=== PATIENT | female | born 1945 | race Two or more races ===

== ENCOUNTER 2018-01-12 13:18 | Outpatient (CLI) | payer OTHER | END 2018-01-12 13:20 | disposition home or self-care (01) | LOC: SONOGRAMA 13:18 | DX: S86.811A Strain of other muscle(s) and tendon(s) at lower leg level, right leg, initial encounter (principal) ==

== ENCOUNTER → 2018-01-12 | Outpatient (CLI) | payer OTHER ==
[~2018-01-12] MED LIST: CEFADROXIL500 MG PO; KETO10TA2 PO; NORVASC2.5 MG; PERCOCET 5/3251 TAB PO; SYNTHROID75 MCG; VITAMIN D400 UNI2
== END | disposition home or self-care (01) ==
LOC: NUCLEAR 11:59
DX: I82.409 Acute embolism and thrombosis of unspecified deep veins of unspecified lower extremity (principal)

== ENCOUNTER 2018-02-23 11:36 | Outpatient (CLI) | payer OTHER | END 2018-02-23 11:46 | disposition home or self-care (01) | LOC: LAB 11:36 | DX: B37.81 Candidal esophagitis (principal); Z11.4 Encounter for screening for human immunodeficiency virus [HIV] ==

== ENCOUNTER 2018-03-03 11:08 | Outpatient (CLI) | payer OTHER | END 2018-03-03 11:22 | disposition home or self-care (01) | LOC: NUCLEAR 11:08 | DX: M81.0 Age-related osteoporosis without current pathological fracture (principal) ==

== ENCOUNTER 2018-03-25 09:23 | Outpatient (CLI) | payer OTHER | END 2018-03-25 09:26 | disposition home or self-care (01) | LOC: SONOGRAMA 09:23 | DX: M25.561 Pain in right knee (principal); S76.812S Strain of other specified muscles, fascia and tendons at thigh level, left thigh, sequela ==

== ENCOUNTER 2018-05-05 10:05 | Outpatient (CLI) | payer OTHER | END 2018-05-05 15:49 | disposition home or self-care (01) | LOC: TOM 10:05 | DX: J44.9 Chronic obstructive pulmonary disease, unspecified (principal) ==

== ENCOUNTER → 2018-07-01 | Emergency (ER) | payer OTHER ==
[~2018-07-01] VITALS: Ht 152.4 cm; Wt 68.0 kg
== END | disposition home or self-care (01) ==
LOC: ER 13:03
DX: S70.02XA Contusion of left hip, initial encounter (principal); S99.812A Other specified injuries of left ankle, initial encounter; W18.09XA Striking against other object with subsequent fall, initial encounter; Y93.89 Activity, other specified; Y92.018 Other place in single-family (private) house as the place of occurrence of the external cause; Y99.8 Other external cause status

== ENCOUNTER 2018-08-24 09:50 | Outpatient (CLI) | payer OTHER | END 2018-08-24 09:55 | disposition home or self-care (01) | LOC: RAD 09:50 | DX: J44.1 Chronic obstructive pulmonary disease with (acute) exacerbation (principal) ==

== ENCOUNTER → 2018-09-01 12:12 | Outpatient (CLI) | payer OTHER | END | disposition home or self-care (01) | LOC: LAB 12:12 | DX: D72.1 Eosinophilia (principal); J45.41 Moderate persistent asthma with (acute) exacerbation ==

== ENCOUNTER 2018-12-17 17:53 | Emergency (ER) | payer OTHER ==
[~2018-12-17] VITALS: Ht 152.4 cm; Wt 71.2 kg
[2018-12-17] MEDS ORDERED: CLONAZEPAM0.5 MG (18:12)
[2018-12-17] MEDS ORDERED: GABAPENTIN800 MG (18:12)
[2018-12-17] MEDS ORDERED: ESTAZOLAM2 MG (18:13)
[2018-12-17] MEDS ORDERED: LYRICA50 MG (18:13)
[2018-12-17] MEDS ORDERED: B-121000 MC1 (18:14)
[2018-12-17] MEDS ORDERED: CYMBALTA60 MG (18:15)
[2018-12-17] MEDS ORDERED: FENOFIBRATE54 MG (18:16)
[2018-12-17] MEDS ORDERED: CALCIUM 600 +1 EACH (18:17)
[2018-12-17] MEDS ORDERED: NORVASC10 MG (18:17)
[2018-12-17] MEDS ORDERED: SIMVASTATIN5 MG (18:18)
== END 2018-12-17 23:33 | disposition home or self-care (01) ==
LOC: ER 17:53
DX: R10.32 Left lower quadrant pain (principal); R19.7 Diarrhea, unspecified

== ENCOUNTER 2018-12-21 11:48 | Outpatient (CLI) | payer OTHER ==
[~2018-12-21 11:48] MED LIST changes: +B-121000 MC1; +CALCIUM 600 +1 EACH; +CLONAZEPAM0.5 MG; +CYMBALTA60 MG; +ESTAZOLAM2 MG; +FENOFIBRATE54 MG; +GABAPENTIN800 MG; +LYRICA50 MG; +NORVASC10 MG; +SIMVASTATIN5 MG
== END 2018-12-21 12:03 | disposition home or self-care (01) ==
LOC: LAB 11:48
DX: R10.13 Epigastric pain (principal); R19.8 Other specified symptoms and signs involving the digestive system and abdomen

== ENCOUNTER 2018-12-22 08:54 | Outpatient (CLI) | payer OTHER | END 2018-12-22 08:59 | disposition home or self-care (01) | LOC: SONOGRAMA 08:54 | DX: R10.13 Epigastric pain (principal); K21.9 Gastro-esophageal reflux disease without esophagitis ==

== ENCOUNTER 2019-03-11 10:46 | Inpatient (IN) | payer OTHER ==
[~2019-03-11] VITALS: Ht 152.4 cm; Wt 68.0 kg
[2019-03-16] MEDS ORDERED: XARELTO20 MG PO (13:15)
[2019-03-16] MEDS ORDERED: CYMBALTA60 MG PO (13:15)
[2019-03-16] MEDS ORDERED: ESTAZOLAM PO (13:15)
[2019-03-16] MEDS ORDERED: AMLODIPINE BESY10 MG PO (13:15)
[2019-03-16] MEDS ORDERED: FENOFIBRATE PO (13:15)
[2019-03-16] MEDS ORDERED: PANTOPRAZOLE SO40 MG PO (13:15)
[2019-03-16] MEDS ORDERED: XARELTO15 MG PO (13:15)
[2019-03-16] MEDS ORDERED: LEVOTHYROXINE75 MCG PO (13:15)
[2019-03-16] MEDS ORDERED: SIMVASTATIN10 MG PO (13:15)
[2019-03-16] MEDS ORDERED: RESTORIL15 MG PO (13:15)
[2019-03-16] MEDS ORDERED: NeurRONTin 400MG CAP PO (13:15)
== END 2019-03-16 14:44 | disposition home health service (06) | DRG 301 ==
LOC: ER 10:46 → MEDJ 19:21
PROVIDERS: ADMIT Internal Medicine
PROC: B54CZZZ Ultrasonography of Left Lower Extremity Veins (ICD-10-PCS; principal; 2019-03-11)
DX: I82.462 Acute embolism and thrombosis of left calf muscular vein (principal); E11.40 Type 2 diabetes mellitus with diabetic neuropathy, unspecified; E11.65 Type 2 diabetes mellitus with hyperglycemia; M62.81 Muscle weakness (generalized); E03.8 Other specified hypothyroidism; E78.49 Other hyperlipidemia; Z79.4 Long term (current) use of insulin; Z86.73 Personal history of transient ischemic attack (TIA), and cerebral infarction without residual deficits; Z79.01 Long term (current) use of anticoagulants

== ENCOUNTER 2019-04-02 09:17 | Outpatient (CLI) | payer OTHER ==
[~2019-04-02 09:17] MED LIST changes: +AMLODIPINE BESY10 MG PO; +CYMBALTA60 MG PO; +ESTAZOLAM PO; +FENOFIBRATE PO; +LEVOTHYROXINE75 MCG PO; +NeurRONTin 400MG CAP PO; +PANTOPRAZOLE SO40 MG PO; +RESTORIL15 MG PO; +SIMVASTATIN10 MG PO; +XARELTO15 MG PO; +XARELTO20 MG PO
== END 2019-04-02 09:26 | disposition home or self-care (01) ==
LOC: LAB 09:17
DX: D51.1 Vitamin B12 deficiency anemia due to selective vitamin B12 malabsorption with proteinuria (principal); I80.222 Phlebitis and thrombophlebitis of left popliteal vein; Z80.3 Family history of malignant neoplasm of breast; D51.3 Other dietary vitamin B12 deficiency anemia; Z86.73 Personal history of transient ischemic attack (TIA), and cerebral infarction without residual deficits; I10 Essential (primary) hypertension; R73.01 Impaired fasting glucose; K21.9 Gastro-esophageal reflux disease without esophagitis; K29.40 Chronic atrophic gastritis without bleeding; B00.89 Other herpesviral infection; F33.8 Other recurrent depressive disorders; M81.0 Age-related osteoporosis without current pathological fracture; M79.7 Fibromyalgia; E55.9 Vitamin D deficiency, unspecified; M33.22 Polymyositis with myopathy; D47.3 Essential (hemorrhagic) thrombocythemia; R97.0 Elevated carcinoembryonic antigen [CEA]; E03.8 Other specified hypothyroidism; E78.2 Mixed hyperlipidemia

== ENCOUNTER 2019-05-17 08:45 | Outpatient (CLI) | payer OTHER | END 2019-05-17 09:00 | disposition home or self-care (01) | LOC: LAB 08:45 | DX: E11.65 Type 2 diabetes mellitus with hyperglycemia (principal); I10 Essential (primary) hypertension; E03.8 Other specified hypothyroidism; D50.8 Other iron deficiency anemias; R70.0 Elevated erythrocyte sedimentation rate; Z80.3 Family history of malignant neoplasm of breast; D51.1 Vitamin B12 deficiency anemia due to selective vitamin B12 malabsorption with proteinuria; I80.222 Phlebitis and thrombophlebitis of left popliteal vein; D51.3 Other dietary vitamin B12 deficiency anemia; Z86.73 Personal history of transient ischemic attack (TIA), and cerebral infarction without residual deficits; K21.9 Gastro-esophageal reflux disease without esophagitis; K29.40 Chronic atrophic gastritis without bleeding; B00.89 Other herpesviral infection; F33.8 Other recurrent depressive disorders; M81.0 Age-related osteoporosis without current pathological fracture; M79.7 Fibromyalgia; E55.9 Vitamin D deficiency, unspecified; M33.22 Polymyositis with myopathy; D47.3 Essential (hemorrhagic) thrombocythemia; R97.0 Elevated carcinoembryonic antigen [CEA]; E78.2 Mixed hyperlipidemia ==

== ENCOUNTER 2019-05-17 09:43 | Outpatient (CLI) | payer OTHER | END 2019-05-17 09:44 | disposition home or self-care (01) | LOC: RAD 09:43 | DX: D51.1 Vitamin B12 deficiency anemia due to selective vitamin B12 malabsorption with proteinuria (principal); I80.222 Phlebitis and thrombophlebitis of left popliteal vein; D51.3 Other dietary vitamin B12 deficiency anemia; Z86.73 Personal history of transient ischemic attack (TIA), and cerebral infarction without residual deficits; I10 Essential (primary) hypertension; R73.01 Impaired fasting glucose; K21.9 Gastro-esophageal reflux disease without esophagitis; K29.40 Chronic atrophic gastritis without bleeding; B00.89 Other herpesviral infection; F33.8 Other recurrent depressive disorders; M81.0 Age-related osteoporosis without current pathological fracture; M79.7 Fibromyalgia; E55.9 Vitamin D deficiency, unspecified; M33.22 Polymyositis with myopathy; D47.3 Essential (hemorrhagic) thrombocythemia; R97.0 Elevated carcinoembryonic antigen [CEA]; E03.8 Other specified hypothyroidism; E78.2 Mixed hyperlipidemia; Z80.3 Family history of malignant neoplasm of breast ==

== ENCOUNTER 2019-05-27 12:10 | Outpatient (CLI) | payer OTHER | END 2019-05-27 12:15 | disposition home or self-care (01) | LOC: MAMO-SONO 12:10 | DX: Z12.31 Encounter for screening mammogram for malignant neoplasm of breast (principal); Z87.898 Personal history of other specified conditions; N60.11 Diffuse cystic mastopathy of right breast; N60.12 Diffuse cystic mastopathy of left breast ==

== ENCOUNTER 2019-06-10 09:30 | Outpatient (CLI) | payer OTHER | END 2019-06-10 10:21 | disposition home or self-care (01) | LOC: NUCLEAR 09:30 | DX: M81.0 Age-related osteoporosis without current pathological fracture (principal) ==

== ENCOUNTER 2019-07-05 09:22 | Outpatient (CLI) | payer OTHER | END 2019-07-05 09:25 | disposition home or self-care (01) | LOC: NUCLEAR 09:22 | DX: I82.493 Acute embolism and thrombosis of other specified deep vein of lower extremity, bilateral (principal) ==

== ENCOUNTER 2019-08-06 07:23 | Outpatient (CLI) | payer OTHER | END 2019-08-06 07:24 | disposition home or self-care (01) | LOC: TOM 07:23 | DX: D51.1 Vitamin B12 deficiency anemia due to selective vitamin B12 malabsorption with proteinuria (principal); I80.222 Phlebitis and thrombophlebitis of left popliteal vein; D51.3 Other dietary vitamin B12 deficiency anemia; Z86.73 Personal history of transient ischemic attack (TIA), and cerebral infarction without residual deficits; Z80.3 Family history of malignant neoplasm of breast; I10 Essential (primary) hypertension; R73.01 Impaired fasting glucose; K29.40 Chronic atrophic gastritis without bleeding; K21.9 Gastro-esophageal reflux disease without esophagitis; B00.89 Other herpesviral infection; F33.8 Other recurrent depressive disorders; M81.0 Age-related osteoporosis without current pathological fracture; M79.7 Fibromyalgia; E55.9 Vitamin D deficiency, unspecified; M33.22 Polymyositis with myopathy; D47.3 Essential (hemorrhagic) thrombocythemia; R97.0 Elevated carcinoembryonic antigen [CEA]; E03.8 Other specified hypothyroidism; E78.2 Mixed hyperlipidemia ==

== ENCOUNTER 2019-09-29 10:14 | Outpatient (CLI) | payer OTHER | END 2019-09-29 10:21 | disposition home or self-care (01) | LOC: MRI 10:14 | PROVIDERS: ATTEND Orthopaedic Surgery | DX: M25.562 Pain in left knee (principal); S83.201A Bucket-handle tear of unspecified meniscus, current injury, left knee, initial encounter | CPT/HCPCS: 73718 ==

== ENCOUNTER 2020-02-28 10:22 | Outpatient (CLI) | payer OTHER | END 2020-02-28 10:28 | disposition home or self-care (01) | LOC: NUCLEAR 10:22 | PROVIDERS: ATTEND Internal Medicine Hematology & Oncology | DX: I80.222 Phlebitis and thrombophlebitis of left popliteal vein (principal); Z80.3 Family history of malignant neoplasm of breast; D51.1 Vitamin B12 deficiency anemia due to selective vitamin B12 malabsorption with proteinuria; D51.3 Other dietary vitamin B12 deficiency anemia; Z86.73 Personal history of transient ischemic attack (TIA), and cerebral infarction without residual deficits; I10 Essential (primary) hypertension; R73.01 Impaired fasting glucose; K21.9 Gastro-esophageal reflux disease without esophagitis; K29.40 Chronic atrophic gastritis without bleeding; B00.89 Other herpesviral infection; F33.9 Major depressive disorder, recurrent, unspecified; M81.0 Age-related osteoporosis without current pathological fracture; M79.7 Fibromyalgia; E55.9 Vitamin D deficiency, unspecified; M33.22 Polymyositis with myopathy; D47.3 Essential (hemorrhagic) thrombocythemia; R97.0 Elevated carcinoembryonic antigen [CEA]; E03.8 Other specified hypothyroidism; E78.2 Mixed hyperlipidemia ==

== ENCOUNTER 2020-09-01 09:08 | Outpatient (CLI) | payer OTHER | END 2020-09-01 09:15 | disposition home or self-care (01) | LOC: TOM 09:08 | PROVIDERS: ATTEND Internal Medicine Hematology & Oncology | DX: K21.9 Gastro-esophageal reflux disease without esophagitis (principal); Z80.3 Family history of malignant neoplasm of breast; Z86.73 Personal history of transient ischemic attack (TIA), and cerebral infarction without residual deficits; K29.40 Chronic atrophic gastritis without bleeding; M79.7 Fibromyalgia; E55.9 Vitamin D deficiency, unspecified; M33.22 Polymyositis with myopathy; D47.3 Essential (hemorrhagic) thrombocythemia; R97.0 Elevated carcinoembryonic antigen [CEA]; E03.8 Other specified hypothyroidism; E78.2 Mixed hyperlipidemia; D51.1 Vitamin B12 deficiency anemia due to selective vitamin B12 malabsorption with proteinuria; I10 Essential (primary) hypertension; B00.9 Herpesviral infection, unspecified; I80.222 Phlebitis and thrombophlebitis of left popliteal vein; R73.01 Impaired fasting glucose; M81.0 Age-related osteoporosis without current pathological fracture; D51.3 Other dietary vitamin B12 deficiency anemia | CPT/HCPCS: 71260; 74177; Q9965 ==

== ENCOUNTER 2020-12-07 09:54 | Outpatient (CLI) | payer OTHER | END 2020-12-07 10:04 | disposition home or self-care (01) | LOC: MAMO-SONO 09:54 | PROVIDERS: ATTEND General Practice | DX: N64.89 Other specified disorders of breast (principal); Z12.31 Encounter for screening mammogram for malignant neoplasm of breast ==

== ENCOUNTER 2020-12-07 12:46 | Outpatient (CLI) | payer OTHER | END 2020-12-07 12:52 | disposition home or self-care (01) | LOC: NUCLEAR 12:46 | PROVIDERS: ATTEND General Practice | DX: M81.0 Age-related osteoporosis without current pathological fracture (principal) ==

== ENCOUNTER 2021-06-13 09:49 | Outpatient (CLI) | payer OTHER | END 2021-06-13 10:04 | disposition home or self-care (01) | LOC: RAD 09:49 | PROVIDERS: ATTEND Internal Medicine Hematology & Oncology | DX: S00.93XA Contusion of unspecified part of head, initial encounter (principal); M54.89 Other dorsalgia; M33.22 Polymyositis with myopathy; M79.7 Fibromyalgia; R73.01 Impaired fasting glucose; M81.0 Age-related osteoporosis without current pathological fracture; R97.0 Elevated carcinoembryonic antigen [CEA] ==

== ENCOUNTER 2021-06-19 09:25 | Outpatient (CLI) | payer OTHER | END 2021-06-19 09:26 | disposition home or self-care (01) | LOC: NUCLEAR 09:25 | PROVIDERS: ATTEND Internal Medicine Hematology & Oncology | DX: D51.1 Vitamin B12 deficiency anemia due to selective vitamin B12 malabsorption with proteinuria (principal) ==

== ENCOUNTER 2021-06-27 08:00 | Outpatient (CLI) | payer OTHER | END 2021-06-27 08:30 | disposition home or self-care (01) | LOC: PPH VACUNA 08:00 | PROVIDERS: ATTEND Emergency Medicine Pediatric Emergency Medicine | DX: Z23 Encounter for immunization (principal) ==

== ENCOUNTER 2021-09-03 11:49 | Outpatient (CLI) | payer OTHER | END 2021-09-03 11:54 | disposition home or self-care (01) | LOC: RAD 11:49 | PROVIDERS: ATTEND Orthopaedic Surgery | DX: M25.561 Pain in right knee (principal); M25.562 Pain in left knee ==

== ENCOUNTER 2021-12-06 09:30 | Outpatient (CLI) | payer OTHER | END 2021-12-06 09:51 | disposition home or self-care (01) | LOC: LAB 09:30 | PROVIDERS: ATTEND Internal Medicine Hematology & Oncology | DX: D50.8 Other iron deficiency anemias (principal); I10 Essential (primary) hypertension; R74.02 Elevation of levels of lactic acid dehydrogenase [LDH]; K76.89 Other specified diseases of liver; E55.9 Vitamin D deficiency, unspecified; E03.8 Other specified hypothyroidism; C50.919 Malignant neoplasm of unspecified site of unspecified female breast; R97.8 Other abnormal tumor markers; R97.0 Elevated carcinoembryonic antigen [CEA]; D51.1 Vitamin B12 deficiency anemia due to selective vitamin B12 malabsorption with proteinuria; I80.222 Phlebitis and thrombophlebitis of left popliteal vein; R73.01 Impaired fasting glucose; K21.9 Gastro-esophageal reflux disease without esophagitis; K29.40 Chronic atrophic gastritis without bleeding; B00.9 Herpesviral infection, unspecified; F33.9 Major depressive disorder, recurrent, unspecified; M81.0 Age-related osteoporosis without current pathological fracture; M79.7 Fibromyalgia; M33.22 Polymyositis with myopathy; D47.3 Essential (hemorrhagic) thrombocythemia; E78.2 Mixed hyperlipidemia; K31.84 Gastroparesis; Z80.3 Family history of malignant neoplasm of breast; Z86.73 Personal history of transient ischemic attack (TIA), and cerebral infarction without residual deficits ==

== ENCOUNTER 2021-12-10 12:53 | Outpatient (CLI) | payer OTHER | END 2021-12-10 13:04 | disposition home or self-care (01) | LOC: RAD 12:53 | PROVIDERS: ATTEND Internal Medicine Hematology & Oncology | DX: S49.92XA Unspecified injury of left shoulder and upper arm, initial encounter (principal) ==

== ENCOUNTER 2021-12-18 10:38 | Outpatient (CLI) | payer OTHER | END 2021-12-18 10:40 | disposition home or self-care (01) | LOC: SONOGRAMA 10:38 | PROVIDERS: ATTEND Orthopaedic Surgery | DX: M25.512 Pain in left shoulder (principal) ==

== ENCOUNTER 2022-02-01 11:54 | Outpatient (CLI) | payer OTHER ==
[~2022-02-01 11:54] MED LIST changes: +AMBIEN10 MG; +FUSION PLUS CA1 EACH
== END 2022-02-01 14:57 | disposition home or self-care (01) ==
LOC: RAD 11:54
PROVIDERS: ATTEND Orthopaedic Surgery
DX: R07.9 Chest pain, unspecified (principal)

== ENCOUNTER → 2022-06-13 | Outpatient (CLI) | payer OTHER | END | disposition home or self-care (01) | LOC: SONOGRAMA 12:05 | PROVIDERS: ATTEND Internal Medicine Hematology & Oncology | DX: Z12.31 Encounter for screening mammogram for malignant neoplasm of breast (principal); N63.0 Unspecified lump in unspecified breast; N64.4 Mastodynia; E04.2 Nontoxic multinodular goiter ==

== ENCOUNTER 2022-07-09 14:06 | Outpatient (CLI) | payer OTHER | END 2022-07-09 14:14 | disposition home or self-care (01) | LOC: MRI 14:06 | PROVIDERS: ATTEND Internal Medicine Hematology & Oncology | DX: M25.512 Pain in left shoulder (principal); R60.1 Generalized edema; Z98.890 Other specified postprocedural states | CPT/HCPCS: 73721 ==

== ENCOUNTER 2022-10-18 07:04 | Outpatient (CLI) | payer OTHER | END 2022-10-18 07:11 | disposition home or self-care (01) | LOC: NUCLEAR 07:04 | PROVIDERS: ATTEND Internal Medicine | DX: I25.118 Atherosclerotic heart disease of native coronary artery with other forms of angina pectoris (principal); E78.2 Mixed hyperlipidemia; I11.9 Hypertensive heart disease without heart failure; R07.9 Chest pain, unspecified; E11.9 Type 2 diabetes mellitus without complications | CPT/HCPCS: 78452; 93017; A9500; J0153 ==

== ENCOUNTER → 2022-12-25 | Outpatient (CLI) | payer OTHER | END | disposition home or self-care (01) | LOC: NUCLEAR 13:00 | PROVIDERS: ATTEND Orthopaedic Surgery | DX: M81.0 Age-related osteoporosis without current pathological fracture (principal) ==

== ENCOUNTER 2023-04-22 14:11 | Inpatient (IN) | payer OTHER ==
[~2023-04-22] VITALS: Ht 154.9 cm; Wt 59.0 kg
[2023-04-22] MEDS ORDERED: LOSARTAN-HCTZ1 EACH PO (14:36)
[2023-04-22 18:12] LABS: MEAN CELL VOLUME 79.1 fL (80.00-100.00); PLATELET COUNT 452 K/uL (150-450); RED BLOOD COUNT 2.72 M/uL (4.00-6.00); RED CELL DISTRIBUTION WIDTH 14.9 % (11.5-14.5)
[2023-04-22 18:13] LABS: MEAN CORPUSCULAR HEMOGLOBIN 25.3 pg (27.00-32.0)
[2023-04-22 18:14] LABS: HEMATOCRIT 21.5 % (36.0-45.00); HEMOGLOBIN 6.9 g/dL (12.0-15.00)
[2023-04-22 18:25] LABS: PARTIAL THROMBOPLASTIN TIME 31.8 SECONDS (22.0-34.0); PROTHROMBIN TIME 10.5 SECONDS (9.0-11.5)
[2023-04-22 18:32] LABS: ALBUMIN 3.7 gm/dL (3.4-5.0); BILIRUBIN TOTAL 0.2 mg/dL (0.3-1.2); CALCIUM 9.8 mg/dL (8.5-10.1); CREATININE SERUM 1.2 mg/dL (0.55-1.02); GFR 43.68; GLOBULINA 4.1 G/DL (2.4-3.5); POTASSIUM 4.37 mEq/L (3.5-5.1); TOTAL PROTEIN 7.8 gm/dL (6.4-8.2)
[2023-04-22 19:46] LABS: URINE APPEARANCE Clear; URINE BILIRRUBIN Negative (NEGATIVE); URINE BLOOD Negative; URINE COLOR Yellow; URINE GLUCOSE Negative (NEGATIVE); URINE LEUKOCYTE Moderate; URINE NITRATE Negative; URINE PROTEIN Negative (NEGATIVE); URINE UROBILINOGEN 0.2 E.U./dl
[2023-04-22 19:50] LABS: URINE BACTERIA 1074.5 uL (0.0-1933); URINE EPITHELIAL CELLS 32.9 uL (0.0-38.8); URINE RBC 6.3 uL (0.0-20.8); URINE WBC 156.1 uL (0.0-23.2)
[2023-04-22] MEDS ORDERED: 0.9 % SODIUM CHLORIDE 1,000 ML IV SCH (22:30)
[2023-04-22] MEDS ORDERED: PANTOPRAZOLE SODIUM 40 MG/VIAL VIAL IV SCH (22:34)
[2023-04-22] MEDS ORDERED: CEFTRIAXONE SODIUM 2,000 MG in 0.9 % SODIUM CHLORIDE 100 ML IV SCH (22:35)
[2023-04-22] MEDS ORDERED: FUROsemide 20 MG/2 ML VIAL IV SCH (22:45)
[2023-04-22] MEDS ORDERED: ACETAMINOPHEN 500 MG GEL..CAP PO PRN (22:45)
[2023-04-23 00:41] LABS: INR 0.96; PARTIAL THROMBOPLASTIN TIME 28.8 SECONDS (22.0-34.0); PROTHROMBIN TIME 10.1 SECONDS (9.0-11.5)
[2023-04-23] MEDS ORDERED: LEVOTHYROXINE SODIUM 75 MCG TABLET PO SCH (06:00)
[2023-04-23] MEDS ORDERED: IRON FUM,PS/FOLIC/BCOMP,C NO.9 1 CAP CAPSULE PO SCH (09:00)
[2023-04-23] MEDS ORDERED: LOSARTAN/HYDROCHLOROTHIAZIDE 1 UDTAB TABLET PO SCH (09:00)
[2023-04-23] MEDS ORDERED: FUROsemide 20 MG/2 ML VIAL IV SCH (10:15)
[2023-04-23 14:24] LABS: FERRITIN 11.9 NG/ML (8-252)
[2023-04-23] MEDS ORDERED: POLYETHYLENE GLYCOL 3350 17 GM BLIST.PACK PO SCH (17:00)
[2023-04-23] MEDS ORDERED: VITAMIN B COMPLEX 1 EACH PO SCH (20:35)
[2023-04-23] MEDS ORDERED: ZOLPIDEM TARTRATE 10 MG TABLET PO SCH (21:00)
[2023-04-23 23:08] LABS: HEMATOCRIT 33.4 % (36.0-45.00); MEAN CELL VOLUME 80.3 fL (80.00-100.00); PLATELET COUNT 428 K/uL (150-450); RED BLOOD COUNT 4.16 M/uL (4.00-6.00); RED CELL DISTRIBUTION WIDTH 15.6 % (11.5-14.5)
[2023-04-23 23:18] LABS: HEMOGLOBIN 11.4 g/dL (12.0-15.00); MEAN CORPUSCULAR HEMOGLOBIN 27.4 pg (27.00-32.0)
[2023-04-24 06:06] LABS: ALBUMIN 3.7 gm/dL (3.4-5.0); BILIRUBIN TOTAL 0.56 mg/dL (0.3-1.2); CALCIUM 9.6 mg/dL (8.5-10.1); GFR 53.91; GLOBULINA 3.6 G/DL (2.4-3.5); POTASSIUM 4.43 mEq/L (3.5-5.1); TOTAL PROTEIN 7.3 gm/dL (6.4-8.2)
[2023-04-24 06:09] LABS: HEMATOCRIT 34.5 % (36.0-45.00); HEMOGLOBIN 11.3 g/dL (12.0-15.00); MEAN CELL VOLUME 80.7 fL (80.00-100.00); MEAN CORPUSCULAR HEMOGLOBIN 26.5 pg (27.00-32.0); MEAN CORPUSCULAR HGB CONC 32.9 g/dl (32.0-36.0); PLATELET COUNT 449 K/uL (150-450); RED BLOOD COUNT 4.27 M/uL (4.00-6.00); RED CELL DISTRIBUTION WIDTH 15.7 % (11.5-14.5)
[2023-04-24] MEDS ORDERED: SOD FERRIC GLUC COMPLX/SUCROSE 62.5 MG/5 ML AMPUL IV SCH (09:00)
[2023-04-24] MEDS ORDERED: ONDANSETRON HCL 4 MG in 0.9 % SODIUM CHLORIDE 50 ML IV PRN (17:30)
[2023-04-24] MEDS ORDERED: SODIUM CHLORIDE 0.45 % 1,000 ML IV SCH (18:15)
[2023-04-25] MEDS ORDERED: LACTOBACILLUS ACIDOPHILUS 1 CAP CAP PO SCH (17:00)
[2023-04-25 20:39] LABS: ob NEGATIVE (NEGATIVE)
== END 2023-04-26 17:44 | disposition home or self-care (01) | DRG 812 ==
LOC: ER 14:11 → MEDI 22:37
PROVIDERS: Emergency Medicine; General Practice; Internal Medicine Hematology & Oncology; ADMIT Internal Medicine; ATTEND Internal Medicine
PROC: BW28ZZZ Computerized Tomography (CT Scan) of Head (ICD-10-PCS; 2023-04-22)
PROC: 30233N1 Transfusion of Nonautologous Red Blood Cells into Peripheral Vein, Percutaneous Approach (ICD-10-PCS; principal; 2023-04-23)
PROC: B54CZZZ Ultrasonography of Left Lower Extremity Veins (ICD-10-PCS; 2023-04-24)
DX: D64.9 Anemia, unspecified (principal); N39.0 Urinary tract infection, site not specified; N17.9 Acute kidney failure, unspecified; E03.9 Hypothyroidism, unspecified; E78.5 Hyperlipidemia, unspecified; Z86.718 Personal history of other venous thrombosis and embolism; Z79.01 Long term (current) use of anticoagulants; I12.9 Hypertensive chronic kidney disease with stage 1 through stage 4 chronic kidney disease, or unspecified chronic kidney disease; N18.9 Chronic kidney disease, unspecified

== ENCOUNTER 2024-07-21 11:44 | Outpatient (CLI) | payer OTHER ==
[~2024-07-21 11:44] MED LIST changes: +LOSARTAN-HCTZ1 EACH PO
== END 2024-07-21 11:47 | disposition home or self-care (01) ==
LOC: RAD 11:44
PROVIDERS: ATTEND Orthopaedic Surgery
DX: M25.521 Pain in right elbow (principal)